=== PATIENT | female | born 1960 | race African-American/Black ===

== ENCOUNTER 2020-06-02 20:38 | Inpatient (IN) | payer MEDICARE, OTHER ==
[~2020-06-02] VITALS: Ht 170.2 cm; Wt 106.1 kg
[2020-06-02] MEDS ORDERED: SODIUM CHLORIDE 0.9% 1,000 ML IV ONE (21:00)
[2020-06-02 21:37] LABS: BASOPHILS % 0.1 % (0.0-2.0); EOSINOPHILS % 0.1 % (0.0-5.0); HEMATOCRIT. 31.5 % (36.0-48.0); HEMOGLOBIN. 9.7 g/dL (12.0-16.0); LYMPHOCYTES % 24.9 % (20.0-50.0); MEAN CORPUSCULAR VOLUME 71.6 fL (81.0-99.0); MONOCYTES % 1.2 % (2.0-8.0); NEUTROPHILS % 73.7 % (40.0-76.0); RED BLOOD CELL COUNT 4.41 mill/uL (4.2-5.4)
[2020-06-02 21:42] LABS: CHLORIDE 97 mEq/L (98-107)
[2020-06-02 21:46] LABS: ETHANOL BLOOD < 10 mg/dL
[2020-06-02 21:50] LABS: CREATINE KINASE 53 IU/L (26-192); PROTHROMBIN TIME 10.2 sec (9.6-11.0)
[2020-06-02 22:14] LABS: CLARITY URINE CLOUDY (CLEAR); COLOR URINE YELLOW (YELLOW); KETONES URINE NEGATIVE (NEGATIVE); LEUKOCYTE ESTERASE URINE NEGATIVE (NEGATIVE); NITRITE URINE POSITIVE (NEGATIVE); OCCULT BLOOD URINE 1+ (NEGATIVE); PH URINE 5.5 (4.5-8.0); PROTEIN URINE 2+ (NEGATIVE); SPECIFIC GRAVITY URINE 1.015 (1.005-1.030); UROBILINOGEN URINE 0.2 E.U./dL (0.2-1.0)
[2020-06-02 22:23] LABS: CANNABINOID URINE SCREEN NEGATIVE (NEGATIVE); OPIATES URINE SCREEN NEGATIVE (NEGATIVE); PHENCYCLIDINE URINE SCREEN NEGATIVE (NEGATIVE)
[2020-06-02 22:24] LABS: *AMPHETAMINES SCREEN URINE NEGATIVE (NEGATIVE); *BARBITURATES SCREEN URINE NEGATIVE (NEGATIVE); *BENZODIAZEPINES SCREEN URINE NEGATIVE (NEGATIVE); METHADONE URINE SCREEN NEGATIVE (NEGATIVE)
[2020-06-02 22:26] LABS: *COCAINE SCREEN URINE NEGATIVE (NEGATIVE)
[2020-06-02 22:31] LABS: MEAN PLATELET VOLUME 9.4 fl (7.4-10.4)
[2020-06-02 22:33] LABS: PLATELET 45 x1000/uL (130-400); PLATELET ESTIMATE MARKEDLY DECREASED
[2020-06-02] MEDS ORDERED: LACTULOSE 20G/30ML UDC PO ONE (22:45)
[2020-06-02] MEDS ORDERED: CEFTRIAXONE 1 G PREMIX 50 ML IV ONE (22:45)
[2020-06-03 01:34] LABS: BG BASE EXCESS 1.6 mmol/L (-2.0-2.0); BG CARBOXYHEMOGLOBIN 0.5 % (0.5-1.5); BG DEOXYHEMOGLOBIN 4.5 % (0.0-5.0); BG FRACTION INSPIRED OXYGEN 21; BG HCO3 ACT 24.9 mmol/L (22.0-26.0); BG OXYGEN SATURATION 95.5 % (92.0-98.5); BG PCO2 34.1 mmHg (35.0-45.0); BG PH 7.481 (7.350-7.450); BG PO2 79.1 mmHg (75.0-100.0); BG SAMPLE SITE RIGHT RADIAL; BG TOTAL HEMOGLOBIN 9.9 g/dL (12.0-18.0); BG VENT MODE ROOM AIR
[2020-06-03] MEDS ORDERED: LORAZEPAM 2MG/ML CPJ IV ONE (01:45)
[2020-06-03] MEDS ORDERED: LEVETIRACETAM 1000MG PREMIX 100 ML IV ONE (02:15)
[2020-06-03 03:00] VITALS: BP 166/80
[2020-06-03] MEDS ORDERED: LORAZEPAM 2MG/ML CPJ IV PRN (03:45)
[2020-06-03] MEDS ORDERED: ONDANSETRON HCL 4MG/2ML INJ IV PRN (03:45)
[2020-06-03] MEDS ORDERED: DEXTROSE 50% WATER 50ML SYRINGE IV PRN (03:45)
[2020-06-03 04:00] VITALS: BP 166/80
[2020-06-03] MEDS ORDERED: DEXT 5%/0.45% NACL KCL 20MEQ/L 1,000 ML IV ONE (05:00)
[2020-06-03] MEDS: INSULIN LISPRO 100 UNITS/ML SUBCUT SCH ×4 (06:23→20:56)
[2020-06-03] MEDS: BLOOD SUGAR DIAGNOSTIC STRIP TEST SCH ×4 (06:23→20:56)
[2020-06-03 07:57] VITALS: BP 187/98
[2020-06-03] MEDS: PANTOPRAZOLE SODIUM 40 MG/VIAL IV SCH (08:37)
[2020-06-03] MEDS ORDERED: LEVETIRACETAM 500MG TABLET PO SCH (09:00)
[2020-06-03 12:00] VITALS: BP 187/88
[2020-06-03] MEDS ORDERED: LEVETIRACETAM 500 MG in SODIUM CHLORIDE 0.9% 100 ML IV SCH (12:30)
[2020-06-03 16:00] VITALS: BP 135/81
[2020-06-03] MEDS ORDERED: LABETALOL 5MG/ML SYR 20 MG/4 ML SYRINGE IV NR (16:00)
[2020-06-03] MEDS ORDERED: CLONIDINE 0.1MG TABLET PO PRN (16:00)
[2020-06-03 16:25] LABS: T4 FREE 0.93 ng/dL (0.76-1.46)
[2020-06-03] MEDS: LOSARTAN POTASSIUM 100 MG TABLET PO SCH (16:30)
[2020-06-03 16:39] LABS: FOLIC ACID (FOLATE) SERUM 16.5 ng/mL (>5.38)
[2020-06-03] MEDS ORDERED: COR25 PO (19:58)
[2020-06-03] MEDS ORDERED: METF-816 PO (19:58)
[2020-06-03] MEDS ORDERED: DEXA0.5T MT (19:58)
[2020-06-03] MEDS ORDERED: TRAZ-251 PO (19:58)
[2020-06-03] MEDS ORDERED: ONDA8TAB6 PO (19:58)
[2020-06-03] MEDS ORDERED: SEMA1PEN SQ (19:58)
[2020-06-03] MEDS ORDERED: INSU100V37 SQ (19:58)
[2020-06-03] MEDS ORDERED: LISI10TA5 PO (19:58)
[2020-06-03] MEDS ORDERED: LEVE1000 MT (19:58)
[2020-06-03] MEDS ORDERED: OXYC-662 MT (19:58)
[2020-06-03 20:00] VITALS: BP 151/79
[2020-06-03] MEDS ORDERED: LABETALOL 5MG/ML SYR 20 MG/4 ML SYRINGE IV PRN (20:00)
[2020-06-03] MEDS: LEVETIRACETAM 500MG PREMIX 100 ML IV SCH (20:39)
[2020-06-03] MEDS: CEFTRIAXONE 1,000 MG in DEXTROSE 5% WATER 50 ML IV SCH (21:10)
[2020-06-04] VITALS (7 sets, daily range): BP systolic 150–180; BP diastolic 78–90
[2020-06-04] MEDS ORDERED: ENALAPRIL 2.5MG/2ML VIAL 2ML IV PRN (06:00)
[2020-06-04] MEDS ORDERED: ENALAPRIL 2.5MG/2ML VIAL 2ML IV SCH (06:00)
[2020-06-04 06:03] LABS: CHLORIDE 93 mEq/L (98-107)
[2020-06-04] MEDS: INSULIN LISPRO 100 UNITS/ML SUBCUT SCH ×4 (06:28→20:37)
[2020-06-04] MEDS: BLOOD SUGAR DIAGNOSTIC STRIP TEST SCH ×4 (06:29→20:36)
[2020-06-04 06:36] LABS: HEMATOCRIT. 34.2 % (36.0-48.0); HEMOGLOBIN. 10.7 g/dL (12.0-16.0); MEAN CORPUSCULAR HEMOGLOBIN 22.3 pg (28.0-32.0); MEAN CORPUSCULAR VOLUME 71.5 fL (81.0-99.0); MEAN PLATELET VOLUME 9.1 fl (7.4-10.4); RED BLOOD CELL COUNT 4.79 mill/uL (4.2-5.4); RED CELL DISTRIBUTION WIDTH 21.5 % (11.6-14.6)
[2020-06-04 07:51] LABS: PLATELET 36 x1000/uL (130-400)
[2020-06-04] MEDS: LOSARTAN POTASSIUM 100 MG TABLET PO SCH (08:51)
[2020-06-04] MEDS: PANTOPRAZOLE SODIUM 40 MG/VIAL IV SCH (08:51)
[2020-06-04] MEDS: LEVETIRACETAM 500MG PREMIX 100 ML IV SCH ×2 (08:51→20:27)
[2020-06-04 09:03] LABS: NUCLEATED RED BLOOD CELLS 3 /100 WBC
[2020-06-04 09:04] LABS: PLATELET ESTIMATE MARKEDLY DECREASED
[2020-06-04] MEDS: AMLODIPINE 10MG TABLET PO SCH (11:58)
[2020-06-04] MEDS: SODIUM CHLORIDE 0.9% 1,000 ML IV SCH (11:59)
[2020-06-04] MEDS ORDERED: GADOTERATE MEGLUMINE 5 MMOL/10 ML VIAL IV ONE (13:34)
[2020-06-04] MEDS: CEFTRIAXONE 1,000 MG in DEXTROSE 5% WATER 50 ML IV SCH (21:06)
[2020-06-05] VITALS: BP 144/68
[2020-06-05] MEDS: DEXAMETHASONE 4MG/ML 1ML VIAL IV SCH ×4 (01:15→18:30)
[2020-06-05] MEDS: SODIUM CHLORIDE 0.9% 1,000 ML IV SCH ×2 (01:29→12:42)
[2020-06-05 04:00] VITALS: BP 163/88
[2020-06-05 06:02] LABS: BASOPHILS % 0.1 % (0.0-2.0); EOSINOPHILS % 0.1 % (0.0-5.0); HEMATOCRIT. 33.1 % (36.0-48.0); HEMOGLOBIN. 10.4 g/dL (12.0-16.0); LYMPHOCYTES % 37.2 % (20.0-50.0); MEAN CORPUSCULAR HEMOGLOBIN 22.3 pg (28.0-32.0); MEAN CORPUSCULAR VOLUME 71.1 fL (81.0-99.0); MEAN PLATELET VOLUME 10.1 fl (7.4-10.4); MONOCYTES % 2.4 % (2.0-8.0); NEUTROPHILS % 60.2 % (40.0-76.0); RED BLOOD CELL COUNT 4.65 mill/uL (4.2-5.4); RED CELL DISTRIBUTION WIDTH 22.4 % (11.6-14.6)
[2020-06-05 06:14] LABS: CHLORIDE 96 mEq/L (98-107)
[2020-06-05] MEDS: INSULIN LISPRO 100 UNITS/ML SUBCUT SCH ×4 (06:17→21:00)
[2020-06-05] MEDS: BLOOD SUGAR DIAGNOSTIC STRIP TEST SCH ×4 (06:17→21:00)
[2020-06-05 06:22] LABS: PLATELET 26 x1000/uL (130-400)
[2020-06-05 08:00] VITALS: BP 179/97
[2020-06-05] MEDS: LOSARTAN POTASSIUM 100 MG TABLET PO SCH (09:17)
[2020-06-05] MEDS: AMLODIPINE 10MG TABLET PO SCH (09:19)
[2020-06-05] MEDS: LEVETIRACETAM 500MG PREMIX 100 ML IV SCH (09:20)
[2020-06-05] MEDS: PANTOPRAZOLE SODIUM 40 MG/VIAL IV SCH (09:20)
[2020-06-05 12:00] VITALS: BP 143/79
[2020-06-05] MEDS ORDERED: HYDRALAZINE HCL 100MG TABLET PO NR (14:00)
[2020-06-05] MEDS ORDERED: POTASSIUM CHLORIDE 20MEQ TABLET SR PO NR (14:00)
[2020-06-05 16:00] VITALS: BP 140/72
[2020-06-05] MEDS: LORAZEPAM 2MG/ML CPJ IV PRN (16:55)
[2020-06-05] MEDS ORDERED: NON FORMULARY PATIENT HOME MED XX SCH (18:15)
[2020-06-05 20:00] VITALS: BP 165/87
[2020-06-05] MEDS ORDERED: WATER IV NR (20:00)
[2020-06-05] MEDS ORDERED: FOSPHENYTOIN SODIUM IV NR (20:00)
[2020-06-05] MEDS ORDERED: DEXTROSE 5% IV NR (20:00)
[2020-06-05 20:31] LABS: BASOPHILS % 0.2 % (0.0-2.0); HEMATOCRIT. 32.9 % (36.0-48.0); HEMOGLOBIN. 10.3 g/dL (12.0-16.0); LYMPHOCYTES % 43.3 % (20.0-50.0); MEAN CORPUSCULAR HEMOGLOBIN 22.5 pg (28.0-32.0); MEAN CORPUSCULAR VOLUME 72.1 fL (81.0-99.0); MEAN PLATELET VOLUME 9.7 fl (7.4-10.4); MONOCYTES % 3.7 % (2.0-8.0); NEUTROPHILS % 52.8 % (40.0-76.0); RED BLOOD CELL COUNT 4.56 mill/uL (4.2-5.4); RED CELL DISTRIBUTION WIDTH 22.4 % (11.6-14.6)
[2020-06-05 20:39] LABS: CHLORIDE 100 mEq/L (98-107)
[2020-06-05] MEDS ORDERED: LEVETIRACETAM 500MG PREMIX 100 ML IV SCH (21:00)
[2020-06-05] MEDS: HYDRALAZINE HCL 100MG TABLET PO SCH (22:00)
[2020-06-05 22:50] LABS: PLATELET 30 x1000/uL (130-400)
[2020-06-06] VITALS: BP 145/85
[2020-06-06] MEDS: DEXAMETHASONE 4MG/ML 1ML VIAL IV SCH ×5 (00:22→23:01)
[2020-06-06] MEDS: LEVETIRACETAM 1,000 MG in SODIUM CHLORIDE 0.9% 100 ML IV SCH ×3 (00:23→21:19)
[2020-06-06 04:00] VITALS: BP 155/83
[2020-06-06 06:46] LABS: CHLORIDE 101 mEq/L (98-107)
[2020-06-06] MEDS: BLOOD SUGAR DIAGNOSTIC STRIP TEST SCH ×4 (07:03→21:18)
[2020-06-06] MEDS: INSULIN LISPRO 100 UNITS/ML SUBCUT SCH ×4 (07:03→21:00)
[2020-06-06 07:09] LABS: BASOPHILS % 0.2 % (0.0-2.0); HEMATOCRIT. 34.3 % (36.0-48.0); HEMOGLOBIN. 10.8 g/dL (12.0-16.0); MEAN CORPUSCULAR HEMOGLOBIN 22.8 pg (28.0-32.0); MEAN CORPUSCULAR VOLUME 72.2 fL (81.0-99.0); MEAN PLATELET VOLUME 9.7 fl (7.4-10.4); NEUTROPHILS % 42.8 % (40.0-76.0); RED BLOOD CELL COUNT 4.75 mill/uL (4.2-5.4); RED CELL DISTRIBUTION WIDTH 22.6 % (11.6-14.6)
[2020-06-06 07:48] LABS: PLATELET 26 x1000/uL (130-400)
[2020-06-06 08:00] VITALS: BP 155/83
[2020-06-06] MEDS: AMLODIPINE 10MG TABLET PO SCH (08:57)
[2020-06-06] MEDS: PANTOPRAZOLE SODIUM 40 MG/VIAL IV SCH (08:57)
[2020-06-06] MEDS: LOSARTAN POTASSIUM 100 MG TABLET PO SCH (08:57)
[2020-06-06] MEDS: HYDRALAZINE HCL 100MG TABLET PO SCH ×3 (08:57→22:00)
[2020-06-06 12:00] VITALS: BP 153/79
[2020-06-06 16:00] VITALS: BP 148/66
[2020-06-06 20:00] VITALS: BP 135/74
[2020-06-07] VITALS: BP_SYST 135; BP_SYST 140; BP_DIAS 74; BP_DIAS 76
[2020-06-07 04:00] VITALS: BP 146/88
[2020-06-07 05:43] LABS: BASOPHILS % 0.1 % (0.0-2.0); HEMATOCRIT. 34.3 % (36.0-48.0); HEMOGLOBIN. 10.7 g/dL (12.0-16.0); LYMPHOCYTES % 53.4 % (20.0-50.0); MEAN CORPUSCULAR HEMOGLOBIN 22.3 pg (28.0-32.0); MEAN CORPUSCULAR VOLUME 71.2 fL (81.0-99.0); MEAN PLATELET VOLUME 9.1 fl (7.4-10.4); MONOCYTES % 4.2 % (2.0-8.0); NEUTROPHILS % 42.3 % (40.0-76.0); RED BLOOD CELL COUNT 4.82 mill/uL (4.2-5.4); RED CELL DISTRIBUTION WIDTH 22.6 % (11.6-14.6)
[2020-06-07 05:45] LABS: CHLORIDE 102 mEq/L (98-107)
[2020-06-07] MEDS: HYDRALAZINE HCL 100MG TABLET PO SCH ×3 (06:00→22:48)
[2020-06-07] MEDS: BLOOD SUGAR DIAGNOSTIC STRIP TEST SCH ×4 (06:38→21:13)
[2020-06-07] MEDS: DEXAMETHASONE 4MG/ML 1ML VIAL IV SCH ×4 (06:38→23:02)
[2020-06-07] MEDS: INSULIN LISPRO 100 UNITS/ML SUBCUT SCH ×4 (06:46→23:05)
[2020-06-07 07:57] LABS: PLATELET 33 x1000/uL (130-400)
[2020-06-07 08:00] VITALS: BP 150/80
[2020-06-07] MEDS: AMLODIPINE 10MG TABLET PO SCH (09:32)
[2020-06-07] MEDS: LOSARTAN POTASSIUM 100 MG TABLET PO SCH (09:32)
[2020-06-07] MEDS: PANTOPRAZOLE SODIUM 40 MG/VIAL IV SCH (09:33)
[2020-06-07] MEDS: LEVETIRACETAM 1,000 MG in SODIUM CHLORIDE 0.9% 100 ML IV SCH ×2 (09:33→22:56)
[2020-06-07 12:00] VITALS: BP 152/75
[2020-06-07 16:00] VITALS: BP 139/73
[2020-06-07 20:00] VITALS: BP 146/73
[2020-06-07 20:04] LABS: TOTAL IRON BINDING CAPACITY 279 ug/dL (250-450)
[2020-06-08] VITALS (9 sets, daily range): BP systolic 124–157; BP diastolic 60–80
[2020-06-08] MEDS: DEXAMETHASONE 4MG/ML 1ML VIAL IV SCH ×3 (05:42→17:46)
[2020-06-08] MEDS: HYDRALAZINE HCL 100MG TABLET PO SCH ×3 (05:46→22:26)
[2020-06-08] MEDS: BLOOD SUGAR DIAGNOSTIC STRIP TEST SCH ×4 (06:20→20:46)
[2020-06-08] MEDS: INSULIN LISPRO 100 UNITS/ML SUBCUT SCH ×4 (06:25→20:46)
[2020-06-08 07:46] LABS: HEMATOCRIT. 33.7 % (36.0-48.0); HEMOGLOBIN. 10.6 g/dL (12.0-16.0); MEAN CORPUSCULAR HEMOGLOBIN 22.5 pg (28.0-32.0); MEAN CORPUSCULAR VOLUME 71.6 fL (81.0-99.0); MEAN PLATELET VOLUME 8.9 fl (7.4-10.4); RED CELL DISTRIBUTION WIDTH 23.2 % (11.6-14.6)
[2020-06-08 07:59] LABS: CHLORIDE 102 mEq/L (98-107)
[2020-06-08 08:06] LABS: PLATELET 19 x1000/uL (130-400)
[2020-06-08] MEDS: LEVETIRACETAM 1,000 MG in SODIUM CHLORIDE 0.9% 100 ML IV SCH ×2 (08:58→20:46)
[2020-06-08] MEDS: PANTOPRAZOLE SODIUM 40 MG/VIAL IV SCH (08:58)
[2020-06-08] MEDS: AMLODIPINE 10MG TABLET PO SCH (08:59)
[2020-06-08] MEDS: LOSARTAN POTASSIUM 100 MG TABLET PO SCH (08:59)
[2020-06-08] MEDS ORDERED: LACTULOSE 20G/30ML UDC PO NR (11:00)
[2020-06-08] MEDS: DOCUSATE SODIUM 250MG CAPSULE PO SCH (13:25)
[2020-06-08 16:31] LABS: PLATELET ESTIMATE MARKEDLY DECREASED
[2020-06-08] MEDS: LORAZEPAM 2MG/ML CPJ IV PRN (17:53)
[2020-06-08] MEDS ORDERED: FILGRASTIM-TBO 480 MCG/0.8 ML SYRINGE SQ SCH (23:30)
[2020-06-09] VITALS (9 sets, daily range): BP systolic 117–154; BP diastolic 59–79
[2020-06-09] MEDS: DEXAMETHASONE 4MG/ML 1ML VIAL IV SCH ×4 (01:12→18:06)
[2020-06-09] MEDS: HYDRALAZINE HCL 100MG TABLET PO SCH ×3 (05:32→22:18)
[2020-06-09] MEDS: BLOOD SUGAR DIAGNOSTIC STRIP TEST SCH ×4 (06:14→21:00)
[2020-06-09] MEDS: INSULIN LISPRO 100 UNITS/ML SUBCUT SCH ×4 (06:16→22:15)
[2020-06-09 07:15] LABS: BASOPHILS % 0.3 % (0.0-2.0); EOSINOPHILS % 0.3 % (0.0-5.0); HEMATOCRIT. 30.3 % (36.0-48.0); HEMOGLOBIN. 9.5 g/dL (12.0-16.0); MEAN CORPUSCULAR HEMOGLOBIN 22.5 pg (28.0-32.0); MEAN CORPUSCULAR VOLUME 71.8 fL (81.0-99.0); MEAN PLATELET VOLUME 8.9 fl (7.4-10.4); MONOCYTES % 2.6 % (2.0-8.0); NEUTROPHILS % 51.8 % (40.0-76.0); RED BLOOD CELL COUNT 4.22 mill/uL (4.2-5.4); RED CELL DISTRIBUTION WIDTH 23.1 % (11.6-14.6)
[2020-06-09 07:25] LABS: CHLORIDE 103 mEq/L (98-107)
[2020-06-09 08:00] LABS: PLATELET 29 x1000/uL (130-400)
[2020-06-09] MEDS: DOCUSATE SODIUM 250MG CAPSULE PO SCH (09:00)
[2020-06-09] MEDS: PANTOPRAZOLE SODIUM 40 MG/VIAL IV SCH ×2 (09:06→22:18)
[2020-06-09] MEDS: LOSARTAN POTASSIUM 100 MG TABLET PO SCH (09:07)
[2020-06-09] MEDS: AMLODIPINE 10MG TABLET PO SCH (09:07)
[2020-06-09] MEDS: LEVETIRACETAM 1,000 MG in SODIUM CHLORIDE 0.9% 100 ML IV SCH ×2 (10:06→22:17)
[2020-06-09] MEDS ORDERED: BISACODYL 10MG SUPP PR PRN (13:30)
[2020-06-09] MEDS: SODIUM CHLORIDE 0.45% 1,000 ML IV SCH (14:11)
[2020-06-09 14:27] LABS: PLATELET ESTIMATE MARKEDLY DECREASED
[2020-06-09 20:46] LABS: HEMATOCRIT 29.4 % (36.0-48.0); HEMOGLOBIN 9.1 g/dL (12.0-16.0); MEAN CORPUSCULAR HEMOGLOBIN 22.2 pg (28.0-32.0); RED BLOOD CELL COUNT 4.09 mill/uL (4.2-5.4); RED CELL DISTRIBUTION WIDTH 22.5 % (11.6-14.6)
[2020-06-09 21:08] LABS: PLATELET 40 x1000/uL (130-400)
[2020-06-09] MEDS: INSULIN GLARGINE UD 100 UNITS/ML SYR SUBCUT SCH (22:16)
[2020-06-09] MEDS: METOPROLOL TARTRATE 25MG TABLET PO SCH (22:18)
[2020-06-10] VITALS (7 sets, daily range): BP systolic 100–149; BP diastolic 61–77
[2020-06-10] MEDS: DEXAMETHASONE 4MG/ML 1ML VIAL IV SCH ×5 (00:21→23:29)
[2020-06-10 00:39] LABS: HEMATOCRIT 28.7 % (36.0-48.0); MEAN CORPUSCULAR HEMOGLOBIN 22.7 pg (28.0-32.0); MEAN CORPUSCULAR VOLUME 72.4 fL (81.0-99.0); RED BLOOD CELL COUNT 3.97 mill/uL (4.2-5.4); RED CELL DISTRIBUTION WIDTH 22.8 % (11.6-14.6)
[2020-06-10 00:49] LABS: PLATELET 42 x1000/uL (130-400)
[2020-06-10] MEDS: HYDRALAZINE HCL 100MG TABLET PO SCH ×3 (05:08→21:13)
[2020-06-10] MEDS: BLOOD SUGAR DIAGNOSTIC STRIP TEST SCH ×4 (06:11→21:00)
[2020-06-10] MEDS: INSULIN LISPRO 100 UNITS/ML SUBCUT SCH ×4 (06:11→21:15)
[2020-06-10 07:37] LABS: INR 0.9; PARTIAL THROMBOPLASTIN TIME 28.8 sec (23.4-31.0); PROTHROMBIN TIME 9.3 sec (9.6-11.0)
[2020-06-10] MEDS: SODIUM CHLORIDE 0.45% 1,000 ML IV SCH (08:45)
[2020-06-10 09:19] LABS: BASOPHILS % 0.8 % (0.0-2.0); CHLORIDE 103 mEq/L (98-107); EOSINOPHILS % 0.3 % (0.0-5.0); HEMOGLOBIN. 9.1 g/dL (12.0-16.0); LYMPHOCYTES % 38.8 % (20.0-50.0); MEAN CORPUSCULAR HEMOGLOBIN 22.6 pg (28.0-32.0); MEAN CORPUSCULAR VOLUME 72.3 fL (81.0-99.0); MEAN PLATELET VOLUME 9.9 fl (7.4-10.4); MONOCYTES % 3.8 % (2.0-8.0); NEUTROPHILS % 56.3 % (40.0-76.0); RED BLOOD CELL COUNT 4.01 mill/uL (4.2-5.4); RED CELL DISTRIBUTION WIDTH 22.7 % (11.6-14.6)
[2020-06-10 09:34] LABS: PLATELET 45 x1000/uL (130-400)
[2020-06-10] MEDS: DOCUSATE SODIUM SUGAR FREE 100MG/10ML UDC NG SCH (09:37)
[2020-06-10] MEDS: LEVETIRACETAM 1,000 MG in SODIUM CHLORIDE 0.9% 100 ML IV SCH ×2 (09:38→21:11)
[2020-06-10] MEDS: METOPROLOL TARTRATE 25MG TABLET PO SCH ×2 (09:38→21:14)
[2020-06-10] MEDS: AMLODIPINE 10MG TABLET PO SCH (09:38)
[2020-06-10] MEDS: LOSARTAN POTASSIUM 100 MG TABLET PO SCH (09:38)
[2020-06-10] MEDS: PANTOPRAZOLE SODIUM 40 MG/VIAL IV SCH ×2 (09:38→21:11)
[2020-06-10] MEDS: INSULIN GLARGINE UD 100 UNITS/ML SYR SUBCUT SCH ×2 (09:39→23:29)
[2020-06-10] MEDS ORDERED: CEFAZOLIN 1000MG PREMIX 50 ML IV SCH (15:30)
[2020-06-11] VITALS (7 sets, daily range): BP systolic 113–143; BP diastolic 55–77
[2020-06-11] MEDS: DEXAMETHASONE 4MG/ML 1ML VIAL IV SCH ×3 (05:48→17:35)
[2020-06-11] MEDS: HYDRALAZINE HCL 100MG TABLET PO SCH ×3 (05:48→21:27)
[2020-06-11] MEDS: SODIUM CHLORIDE 0.45% 1,000 ML IV SCH (05:49)
[2020-06-11] MEDS: INSULIN LISPRO 100 UNITS/ML SUBCUT SCH ×4 (06:08→21:27)
[2020-06-11] MEDS: BLOOD SUGAR DIAGNOSTIC STRIP TEST SCH ×4 (07:24→21:29)
[2020-06-11] MEDS: METOPROLOL TARTRATE 25MG TABLET PO SCH ×2 (09:00→21:28)
[2020-06-11 09:18] LABS: HEMATOCRIT 29.7 % (36.0-48.0); HEMOGLOBIN 9.3 g/dL (12.0-16.0); MEAN CORPUSCULAR HEMOGLOBIN 22.6 pg (28.0-32.0); MEAN CORPUSCULAR VOLUME 72.2 fL (81.0-99.0); RED BLOOD CELL COUNT 4.11 mill/uL (4.2-5.4)
[2020-06-11 09:23] LABS: PLATELET 46 x1000/uL (130-400)
[2020-06-11 09:31] LABS: INR 0.9; PROTHROMBIN TIME 9.6 sec (9.6-11.0)
[2020-06-11] MEDS: DOCUSATE SODIUM SUGAR FREE 100MG/10ML UDC NG SCH (09:54)
[2020-06-11] MEDS: PANTOPRAZOLE SODIUM 40 MG/VIAL IV SCH ×2 (09:54→21:28)
[2020-06-11] MEDS: AMLODIPINE 10MG TABLET PO SCH (09:54)
[2020-06-11] MEDS: LOSARTAN POTASSIUM 100 MG TABLET PO SCH (09:55)
[2020-06-11] MEDS: INSULIN GLARGINE UD 100 UNITS/ML SYR SUBCUT SCH ×2 (10:06→21:27)
[2020-06-11] MEDS: LEVETIRACETAM 1,000 MG in SODIUM CHLORIDE 0.9% 100 ML IV SCH ×2 (10:13→21:29)
[2020-06-11] MEDS ORDERED: LACTULOSE 20G/30ML UDC PO NR (17:00)
[2020-06-11] MEDS ORDERED: BISACODYL 10MG SUPP PR NR (17:00)
[2020-06-12] VITALS (10 sets, daily range): BP systolic 123–179; BP diastolic 57–81
[2020-06-12] MEDS: SODIUM CHLORIDE 0.45% 1,000 ML IV SCH ×2 (00:37→21:12)
[2020-06-12] MEDS: DEXAMETHASONE 4MG/ML 1ML VIAL IV SCH (00:37)
[2020-06-12] MEDS: HYDRALAZINE HCL 100MG TABLET PO SCH ×3 (06:12→21:23)
[2020-06-12] MEDS: INSULIN LISPRO 100 UNITS/ML SUBCUT SCH ×4 (06:13→21:17)
[2020-06-12] MEDS: BLOOD SUGAR DIAGNOSTIC STRIP TEST SCH ×4 (06:13→21:20)
[2020-06-12 07:05] LABS: INR 0.9; PROTHROMBIN TIME 9.7 sec (9.6-11.0)
[2020-06-12 07:08] LABS: HEMATOCRIT. 28.2 % (36.0-48.0); HEMOGLOBIN. 8.8 g/dL (12.0-16.0); MEAN CORPUSCULAR HEMOGLOBIN 22.6 pg (28.0-32.0); MEAN CORPUSCULAR VOLUME 72.7 fL (81.0-99.0); RED BLOOD CELL COUNT 3.88 mill/uL (4.2-5.4); RED CELL DISTRIBUTION WIDTH 22.6 % (11.6-14.6)
[2020-06-12] MEDS ORDERED: MORPHINE SULFATE 2 MG/ML CPJ (NOT FOR IM USE) IV PRN (08:15)
[2020-06-12 08:29] LABS: CHLORIDE 103 mEq/L (98-107)
[2020-06-12] MEDS: DOCUSATE SODIUM SUGAR FREE 100MG/10ML UDC NG SCH (08:45)
[2020-06-12] MEDS: LEVETIRACETAM 1,000 MG in SODIUM CHLORIDE 0.9% 100 ML IV SCH ×2 (08:46→21:11)
[2020-06-12] MEDS: AMLODIPINE 10MG TABLET PO SCH (08:46)
[2020-06-12] MEDS: LOSARTAN POTASSIUM 100 MG TABLET PO SCH (08:46)
[2020-06-12] MEDS: PANTOPRAZOLE SODIUM 40 MG/VIAL IV SCH ×2 (08:47→21:10)
[2020-06-12] MEDS: METOPROLOL TARTRATE 25MG TABLET PO SCH ×2 (08:47→21:23)
[2020-06-12] MEDS: POLYETHYLENE GLYCOL 3350 (17GM) 1 DOSE PACK PO SCH (08:47)
[2020-06-12] MEDS: INSULIN GLARGINE UD 100 UNITS/ML SYR SUBCUT SCH ×2 (10:13→21:20)
[2020-06-12 10:45] LABS: NUCLEATED RED BLOOD CELLS 1 /100 WBC; PLATELET ESTIMATE DECREASED
[2020-06-12 10:46] LABS: MEAN PLATELET VOLUME 9.7 fl (7.4-10.4); PLATELET 77 x1000/uL (130-400)
[2020-06-12] MEDS ORDERED: DILTIAZEM HCL 5MG/ML 5ML VIAL IV NR (11:30)
[2020-06-12] MEDS: IPRATROPIUM BROMIDE (0.02%) 0.5MG/2.5ML NEB HHN SCH ×3 (12:35→21:22)
[2020-06-12] MEDS: METRONIDAZOLE 500 MG PREMIX 100 ML IV SCH ×2 (12:55→21:11)
[2020-06-12] MEDS: CEFEPIME 1,000 MG in DEXTROSE 5% WATER 50 ML IV SCH (14:16)
[2020-06-12] MEDS: DILTIAZEM HCL 60MG TABLET PO SCH ×2 (14:16→18:00)
[2020-06-12 16:54] LABS: BG BASE EXCESS 1.2 mmol/L (-2.0-2.0); BG CARBOXYHEMOGLOBIN 0.2 % (0.5-1.5); BG DEOXYHEMOGLOBIN 3.3 % (0.0-5.0); BG FRACTION INSPIRED OXYGEN 70; BG HCO3 ACT 30.9 mmol/L (22.0-26.0); BG METHEMOGLOBIN 0.2 % (0.0-1.5); BG OXYGEN SATURATION 96.7 % (92.0-98.5); BG OXYHEMOGLOBIN 96.3 % (94.0-97.0); BG PCO2 84.1 mmHg (35.0-45.0); BG PH 7.183 (7.350-7.450); BG PO2 121.6 mmHg (75.0-100.0); BG TOTAL HEMOGLOBIN 9.9 g/dL (12.0-18.0); BG VENT MODE MASK - BIPAP
[2020-06-13] VITALS: BP 134/19
[2020-06-13] MEDS: DILTIAZEM HCL 60MG TABLET PO SCH ×3 (00:50→12:12)
[2020-06-13] MEDS: IPRATROPIUM BROMIDE (0.02%) 0.5MG/2.5ML NEB HHN SCH ×6 (00:56→20:46)
[2020-06-13 04:00] VITALS: BP 132/57
[2020-06-13] MEDS: METRONIDAZOLE 500 MG PREMIX 100 ML IV SCH ×3 (05:39→23:12)
[2020-06-13] MEDS: HYDRALAZINE HCL 100MG TABLET PO SCH ×3 (05:39→20:29)
[2020-06-13] MEDS: INSULIN LISPRO 100 UNITS/ML SUBCUT SCH ×4 (06:25→20:52)
[2020-06-13] MEDS: BLOOD SUGAR DIAGNOSTIC STRIP TEST SCH ×4 (06:25→20:29)
[2020-06-13 07:02] LABS: CHLORIDE 103 mEq/L (98-107)
[2020-06-13 07:11] LABS: BASOPHILS % 0.5 % (0.0-2.0); EOSINOPHILS % 0.2 % (0.0-5.0); HEMATOCRIT. 27.9 % (36.0-48.0); HEMOGLOBIN. 8.7 g/dL (12.0-16.0); LYMPHOCYTES % 50.4 % (20.0-50.0); MEAN CORPUSCULAR HEMOGLOBIN 22.5 pg (28.0-32.0); MONOCYTES % 3.9 % (2.0-8.0); RED BLOOD CELL COUNT 3.88 mill/uL (4.2-5.4); RED CELL DISTRIBUTION WIDTH 22.4 % (11.6-14.6)
[2020-06-13 08:00] VITALS: BP 129/56
[2020-06-13] MEDS: DOCUSATE SODIUM SUGAR FREE 100MG/10ML UDC NG SCH (08:29)
[2020-06-13] MEDS: CEFEPIME 1,000 MG in DEXTROSE 5% WATER 50 ML IV SCH (08:29)
[2020-06-13] MEDS: PANTOPRAZOLE SODIUM 40 MG/VIAL IV SCH ×2 (08:29→20:28)
[2020-06-13] MEDS: LOSARTAN POTASSIUM 100 MG TABLET PO SCH (08:30)
[2020-06-13] MEDS: POLYETHYLENE GLYCOL 3350 (17GM) 1 DOSE PACK PO SCH (08:30)
[2020-06-13] MEDS: METOPROLOL TARTRATE 25MG TABLET PO SCH ×2 (08:30→20:29)
[2020-06-13 08:44] LABS: PLATELET 64 x1000/uL (130-400)
[2020-06-13] MEDS: LEVETIRACETAM 1,000 MG in SODIUM CHLORIDE 0.9% 100 ML IV SCH ×2 (09:26→21:52)
[2020-06-13] MEDS: INSULIN GLARGINE UD 100 UNITS/ML SYR SUBCUT SCH ×2 (09:27→21:53)
[2020-06-13 12:00] VITALS: BP 137/60
[2020-06-13] MEDS ORDERED: BISACODYL 10MG SUPP PR PRN (14:00)
[2020-06-13 16:00] VITALS: BP 140/61
[2020-06-13] MEDS: DILTIAZEM HCL 90MG TABLET PO SCH ×2 (17:22→23:12)
[2020-06-13] MEDS: SODIUM CHLORIDE 0.45% 1,000 ML IV SCH (17:22)
[2020-06-13 20:00] VITALS: BP 148/61
[2020-06-13] MEDS: WATER IV SCH (20:28)
[2020-06-13] MEDS: DEXTROSE 5% IV SCH (20:28)
[2020-06-13] MEDS: FOSPHENYTOIN SODIUM IV SCH (20:28)
[2020-06-14] VITALS: BP 116/65
[2020-06-14] MEDS: IPRATROPIUM BROMIDE (0.02%) 0.5MG/2.5ML NEB HHN SCH ×6 (00:33→21:24)
[2020-06-14 04:00] VITALS: BP 110/66
[2020-06-14] MEDS: HYDRALAZINE HCL 100MG TABLET PO SCH ×3 (05:05→21:12)
[2020-06-14] MEDS: METRONIDAZOLE 500 MG PREMIX 100 ML IV SCH ×3 (05:11→21:15)
[2020-06-14] MEDS: DILTIAZEM HCL 90MG TABLET PO SCH ×4 (05:11→23:47)
[2020-06-14] MEDS: INSULIN LISPRO 100 UNITS/ML SUBCUT SCH ×4 (06:22→21:10)
[2020-06-14] MEDS: BLOOD SUGAR DIAGNOSTIC STRIP TEST SCH ×4 (06:22→21:11)
[2020-06-14 06:46] LABS: BASOPHILS % 0.2 % (0.0-2.0); EOSINOPHILS % 0.1 % (0.0-5.0); HEMATOCRIT. 24.8 % (36.0-48.0); HEMOGLOBIN. 7.8 g/dL (12.0-16.0); MEAN CORPUSCULAR HEMOGLOBIN 22.8 pg (28.0-32.0); MEAN CORPUSCULAR VOLUME 72.1 fL (81.0-99.0); MONOCYTES % 2.8 % (2.0-8.0); NEUTROPHILS % 67.9 % (40.0-76.0); RED BLOOD CELL COUNT 3.44 mill/uL (4.2-5.4); RED CELL DISTRIBUTION WIDTH 22.9 % (11.6-14.6)
[2020-06-14 07:08] LABS: CHLORIDE 105 mEq/L (98-107)
[2020-06-14 08:00] VITALS: BP 159/78
[2020-06-14] MEDS: LEVETIRACETAM 1,000 MG in SODIUM CHLORIDE 0.9% 100 ML IV SCH ×2 (09:45→21:15)
[2020-06-14] MEDS: DOCUSATE SODIUM SUGAR FREE 100MG/10ML UDC NG SCH (09:45)
[2020-06-14] MEDS: PANTOPRAZOLE SODIUM 40 MG/VIAL IV SCH ×2 (09:45→21:12)
[2020-06-14] MEDS: CEFEPIME 1,000 MG in DEXTROSE 5% WATER 50 ML IV SCH (09:45)
[2020-06-14] MEDS: LOSARTAN POTASSIUM 100 MG TABLET PO SCH (09:46)
[2020-06-14] MEDS: METOPROLOL TARTRATE 25MG TABLET PO SCH ×2 (09:46→21:12)
[2020-06-14] MEDS: POLYETHYLENE GLYCOL 3350 (17GM) 1 DOSE PACK PO SCH (09:49)
[2020-06-14] MEDS: ACETAMINOPHEN 325MG TABLET PO PRN ×3 (10:23→23:47)
[2020-06-14 12:00] VITALS: BP 143/71
[2020-06-14 12:43] LABS: BG BASE EXCESS 5.1 mmol/L (-2.0-2.0); BG CARBOXYHEMOGLOBIN 0.2 % (0.5-1.5); BG DEOXYHEMOGLOBIN 1.1 % (0.0-5.0); BG HCO3 ACT 29.3 mmol/L (22.0-26.0); BG METHEMOGLOBIN 0.1 % (0.0-1.5); BG OXYGEN SATURATION 98.9 % (92.0-98.5); BG OXYHEMOGLOBIN 98.6 % (94.0-97.0); BG PCO2 41.9 mmHg (35.0-45.0); BG PH 7.463 (7.350-7.450); BG PO2 235.2 mmHg (75.0-100.0); BG SAMPLE SITE RIGHT RADIAL; BG TOTAL HEMOGLOBIN 8.5 g/dL (12.0-18.0); BG VENT MODE MASK - BIPAP
[2020-06-14] MEDS: SODIUM CHLORIDE 0.45% 1,000 ML IV SCH (13:54)
[2020-06-14 14:41] LABS: PLATELET ESTIMATE DECREASED
[2020-06-14 14:42] LABS: PLATELET 62 x1000/uL (130-400)
[2020-06-14 16:00] VITALS: BP 135/65
[2020-06-14] MEDS ORDERED: HYDROCODONE/ACETAMINOPHEN 5/325MG TABLET PO PRN (18:45)
[2020-06-14 20:00] VITALS: BP 135/71
[2020-06-14] MEDS: DEXTROSE 5% IV SCH (21:12)
[2020-06-14] MEDS: WATER IV SCH (21:12)
[2020-06-14] MEDS: FOSPHENYTOIN SODIUM IV SCH (21:12)
[2020-06-15] VITALS (7 sets, daily range): BP systolic 114–136; BP diastolic 56–106
[2020-06-15] MEDS ORDERED: MORPHINE SULFATE 2 MG/ML CPJ (NOT FOR IM USE) IV PRN
[2020-06-15] MEDS: IPRATROPIUM BROMIDE (0.02%) 0.5MG/2.5ML NEB HHN SCH ×7 (02:04→23:48)
[2020-06-15] MEDS: HYDRALAZINE HCL 100MG TABLET PO SCH ×3 (05:05→22:43)
[2020-06-15] MEDS: METRONIDAZOLE 500 MG PREMIX 100 ML IV SCH ×3 (05:06→23:06)
[2020-06-15] MEDS: DILTIAZEM HCL 90MG TABLET PO SCH ×3 (05:06→17:47)
[2020-06-15] MEDS: BLOOD SUGAR DIAGNOSTIC STRIP TEST SCH ×4 (06:22→21:00)
[2020-06-15] MEDS: INSULIN LISPRO 100 UNITS/ML SUBCUT SCH ×4 (06:28→23:03)
[2020-06-15 06:49] LABS: HEMATOCRIT. 23.9 % (36.0-48.0); HEMOGLOBIN. 7.5 g/dL (12.0-16.0); MEAN CORPUSCULAR HEMOGLOBIN 22.6 pg (28.0-32.0); RED BLOOD CELL COUNT 3.32 mill/uL (4.2-5.4); RED CELL DISTRIBUTION WIDTH 22.4 % (11.6-14.6)
[2020-06-15 07:22] LABS: CHLORIDE 105 mEq/L (98-107)
[2020-06-15 08:02] LABS: PLATELET 71 x1000/uL (130-400)
[2020-06-15] MEDS: METOPROLOL TARTRATE 25MG TABLET PO SCH ×2 (09:49→22:42)
[2020-06-15] MEDS: LEVETIRACETAM 1,000 MG in SODIUM CHLORIDE 0.9% 100 ML IV SCH ×2 (09:49→22:43)
[2020-06-15] MEDS: LOSARTAN POTASSIUM 100 MG TABLET PO SCH (09:49)
[2020-06-15] MEDS: PANTOPRAZOLE SODIUM 40 MG/VIAL IV SCH ×2 (09:49→22:43)
[2020-06-15] MEDS: CEFEPIME 1,000 MG in DEXTROSE 5% WATER 50 ML IV SCH (09:49)
[2020-06-15] MEDS: POLYETHYLENE GLYCOL 3350 (17GM) 1 DOSE PACK PO SCH (09:50)
[2020-06-15] MEDS: SODIUM CHLORIDE 0.45% 1,000 ML IV SCH (09:54)
[2020-06-15] MEDS: DOCUSATE SODIUM SUGAR FREE 100MG/10ML UDC NG SCH (09:55)
[2020-06-15 22:16] LABS: NUCLEATED RED BLOOD CELLS 2 /100 WBC
[2020-06-15 22:17] LABS: PLATELET ESTIMATE DECREASED
[2020-06-16] VITALS (7 sets, daily range): BP systolic 134–154; BP diastolic 60–75
[2020-06-16] MEDS: DEXTROSE 5% IV SCH ×2 (00:26→22:29)
[2020-06-16] MEDS: FOSPHENYTOIN SODIUM IV SCH ×2 (00:26→22:29)
[2020-06-16] MEDS: WATER IV SCH ×2 (00:26→22:29)
[2020-06-16] MEDS: DILTIAZEM HCL 90MG TABLET PO SCH ×4 (00:31→17:07)
[2020-06-16] MEDS: IPRATROPIUM BROMIDE (0.02%) 0.5MG/2.5ML NEB HHN SCH ×5 (04:13→21:27)
[2020-06-16] MEDS: METRONIDAZOLE 500 MG PREMIX 100 ML IV SCH ×3 (06:01→22:30)
[2020-06-16] MEDS: HYDRALAZINE HCL 100MG TABLET PO SCH ×3 (06:02→22:40)
[2020-06-16] MEDS: ACETAMINOPHEN 325MG TABLET PO PRN (06:02)
[2020-06-16] MEDS: BLOOD SUGAR DIAGNOSTIC STRIP TEST SCH ×4 (06:03→21:35)
[2020-06-16] MEDS: INSULIN LISPRO 100 UNITS/ML SUBCUT SCH ×4 (06:03→22:31)
[2020-06-16] MEDS: SODIUM CHLORIDE 0.45% 1,000 ML IV SCH (06:04)
[2020-06-16] MEDS: LOSARTAN POTASSIUM 100 MG TABLET PO SCH (09:06)
[2020-06-16] MEDS: DOCUSATE SODIUM SUGAR FREE 100MG/10ML UDC NG SCH (09:07)
[2020-06-16] MEDS: PANTOPRAZOLE SODIUM 40 MG/VIAL IV SCH ×2 (09:07→22:39)
[2020-06-16] MEDS: METOPROLOL TARTRATE 25MG TABLET PO SCH ×2 (09:07→22:39)
[2020-06-16] MEDS: LEVETIRACETAM 1,000 MG in SODIUM CHLORIDE 0.9% 100 ML IV SCH ×2 (09:17→22:29)
[2020-06-16] MEDS: POLYETHYLENE GLYCOL 3350 (17GM) 1 DOSE PACK PO SCH (09:25)
[2020-06-16] MEDS: CEFEPIME 1,000 MG in DEXTROSE 5% WATER 50 ML IV SCH (09:25)
[2020-06-17] VITALS: BP 123/64
[2020-06-17] MEDS: DILTIAZEM HCL 90MG TABLET PO SCH ×3 (00:30→12:21)
[2020-06-17] MEDS: IPRATROPIUM BROMIDE (0.02%) 0.5MG/2.5ML NEB HHN SCH ×4 (01:03→12:17)
[2020-06-17 04:00] VITALS: BP 150/74
[2020-06-17] MEDS: BLOOD SUGAR DIAGNOSTIC STRIP TEST SCH ×2 (06:04→11:51)
[2020-06-17] MEDS: INSULIN LISPRO 100 UNITS/ML SUBCUT SCH ×2 (06:43→12:22)
[2020-06-17] MEDS: HYDRALAZINE HCL 100MG TABLET PO SCH ×2 (06:43→13:12)
[2020-06-17] MEDS: METRONIDAZOLE 500 MG PREMIX 100 ML IV SCH (06:44)
[2020-06-17] MEDS: SODIUM CHLORIDE 0.45% 1,000 ML IV SCH (06:50)
[2020-06-17 08:00] VITALS: BP 125/68
[2020-06-17] MEDS: POLYETHYLENE GLYCOL 3350 (17GM) 1 DOSE PACK PO SCH (09:00)
[2020-06-17] MEDS: DOCUSATE SODIUM SUGAR FREE 100MG/10ML UDC NG SCH (09:00)
[2020-06-17] MEDS: METOPROLOL TARTRATE 25MG TABLET PO SCH (09:42)
[2020-06-17] MEDS: LEVETIRACETAM 1,000 MG in SODIUM CHLORIDE 0.9% 100 ML IV SCH (09:42)
[2020-06-17] MEDS: PANTOPRAZOLE SODIUM 40 MG/VIAL IV SCH (09:42)
[2020-06-17] MEDS: LOSARTAN POTASSIUM 100 MG TABLET PO SCH (09:42)
[2020-06-17 11:30] VITALS: BP 141/70
[2020-06-17 11:51] VITALS: BP 141/70
== END 2020-06-17 15:05 | disposition hospice, home (50) | DRG 871 ==
LOC: ER 21:14 → 8WST 06-03 01:02 → ENRESERV 06-03 01:50
PROVIDERS: ADMIT Ophthalmology; ATTEND Ophthalmology
PROC: 30233R1 Transfusion of Nonautologous Platelets into Peripheral Vein, Percutaneous Approach (ICD-10-PCS; principal; 2020-06-08)
DX: A41.9 Sepsis, unspecified organism (principal); E43 Unspecified severe protein-calorie malnutrition; J18.9 Pneumonia, unspecified organism; J96.00 Acute respiratory failure, unspecified whether with hypoxia or hypercapnia; G93.49 Other encephalopathy; C79.31 Secondary malignant neoplasm of brain; N30.00 Acute cystitis without hematuria; C79.51 Secondary malignant neoplasm of bone; C92.00 Acute myeloblastic leukemia, not having achieved remission; D61.818 Other pancytopenia; R18.8 Other ascites; R47.01 Aphasia; E87.1 Hypo-osmolality and hyponatremia; C50.911 Malignant neoplasm of unspecified site of right female breast; D56.0 Alpha thalassemia; E66.9 Obesity, unspecified; E87.8 Other disorders of electrolyte and fluid balance, not elsewhere classified; D63.1 Anemia in chronic kidney disease; E11.22 Type 2 diabetes mellitus with diabetic chronic kidney disease; G40.909 Epilepsy, unspecified, not intractable, without status epilepticus; I12.9 Hypertensive chronic kidney disease with stage 1 through stage 4 chronic kidney disease, or unspecified chronic kidney disease; K76.0 Fatty (change of) liver, not elsewhere classified; N18.9 Chronic kidney disease, unspecified; R13.10 Dysphagia, unspecified; T45.1X5A Adverse effect of antineoplastic and immunosuppressive drugs, initial encounter; Z51.5 Encounter for palliative care; Z66 Do not resuscitate; R20.0 Anesthesia of skin; Z20.828 Contact with and (suspected) exposure to other viral communicable diseases; Z86.73 Personal history of transient ischemic attack (TIA), and cerebral infarction without residual deficits; Y92.89 Other specified places as the place of occurrence of the external cause; Z88.5 Allergy status to narcotic agent; Z88.8 Allergy status to other drugs, medicaments and biological substances; Z79.84 Long term (current) use of oral hypoglycemic drugs; Z79.899 Other long term (current) drug therapy; Z68.36 Body mass index [BMI] 36.0-36.9, adult; I10 Essential (primary) hypertension; R74.01 Elevation of levels of liver transaminase levels; D69.6 Thrombocytopenia, unspecified
CPT/HCPCS: 36415; 36600; 70553; 71045; 76700; 80048; 80053; 80305; 80320; 81003; 82140; 82375; 82550; 82607; 82728; 82746; 82805; 82962; 83036; 83540; 83550; 84145; 84439; 84443; 84481; 84484; 85025; 85027; 85044; 85384; 86850; 86900; 87426; 92610; 93005; 93970; 94640; 97112; 97163; 97167; 97530; 97535; 99291; A6261; A9577; C1893; C9113; J0692; J0696; J1100; J1442; J1815; J1953; J2060; J2270; J3490; J7030; J7040; J7042; J7050; J7060; P9034; Q2009; G0480